=== PATIENT | female | born 1995 | race Caucasian/White ===

== ENCOUNTER 2016-12-06 20:56 | Emergency (ER) ==
[2016-12-06] MEDS ORDERED: NORCO 7.5-325 PO STA (21:21)
[2016-12-06 21:25] VITALS: BP 135/92; TEMP 98; BMI 28.5
--- NOTE | 2016-12-06 21:25 | ED.PDOC ---
General ED Provider: Dr. ZEYAD HUBER-ER Chief Complaint: Hand Pain/Injury Stated Complaint: i shut my hand in car door last night Time Seen by Physician: 21:23 Mode of Arrival: Walk-In Information Source: Patient Exam Limitations: No limitations Nursing and Triage Documentation Reviewed and Agree: Yes Musculoskeletal Complaint Exam - Hand/Wrist Complaint/Exam Location of Pain: Reports: Right, Digit #5 Mechanism of Injury: Reports: Trauma Onset/Duration: 24hrs Symptoms Are: Still present Onset of Pain: Reports: Immediate Initial Severity: Mild Current Severity: Moderate Location: Reports: Discrete (right hand ) Character: Reports: Dull, Aching Alleviating: Reports: Rest, Elevation Aggravating: Reports: Movement Associated Signs and Symptoms: Reports: Swelling, Bruising. Denies: Redness, Fever, Weakness, Numbness, Tingling Dominant Hand: Right Related Surgical History: Reports: None Hand/Wrist Findings: Present: Swelling, Ecchymosis Tenderness: Present: Metacarpal Compartment Syndrome Risk Factors: Present: Pain. Absent: Paralysis, Pallor, Pulselessness, Paresthesias Differential Diagnoses: Contusion, Closed Fracture Review of Systems - Review Of Systems Constitutional: Reports: No symptoms Eyes: Reports: No symptoms Ears, Nose, Mouth, Throat: Reports: No symptoms Respiratory: Reports: No symptoms Cardiac: Reports: No symptoms GI: Reports: No symptoms : Reports: No symptoms Musculoskeletal: Reports: Muscle pain Skin: Reports: No symptoms Neurological: Reports: No symptoms Endocrine: Reports: No symptoms Hematologic/Lymphatic: Reports: No symptoms All Other Systems: Reviewed and Negative Past Medical History - Past Medical History Endocrine: Reports: Unknown Cardiovascular: Reports: Unknown Respiratory: Reports: Unknown Hematological: Reports: Unknown Gastrointestinal: Reports: Unknown Genitourinary: Reports: Unknown Neuro/Psych: Reports: Unknown Musculoskeletal: Reports: Unknown Cancer: Reports: Unknown - Surgical History General Surgical History: Reports: Unknown - Family History Family History: Reports: Unknown - Social History Hx Substance Use: No Lives: With family Physical Exam - Physical Exam Appearance: Well-appearing Pain Distress: Mild Eyes: JEFF ENT: Ears normal, Nose normal, Oropharynx normal Neck: Supple Respiratory: Airway patent, Breath sounds clear, Breath sounds equal, Respirations nonlabored Cardiovascular: RRR, Pulses normal, No rub, No murmur GI/: Soft, Nontender, No masses, Bowel sounds normal, No Organomegaly Musculoskeletal: Limited ROM Skin: Warm, Dry, Normal color Neurological: Sensation intact, Motor intact, Reflexes intact, Cranial nerves intact, Alert, Oriented Psychiatric: Affect appropriate Interpretation - Radiology Interpretation Radiology Interpretation By: ED Physician Radiology Results: Positive Procedures - Splinting Location: right 5th metcarpal Hand-Made Type: Orthoglass Splint: Gutter splint Pre-Proc Neuro Vasc Exam: Normal Post-Proc Neuro Vasc Exam: Normal Re-Evaluation - Re-Evaluation Time of Re-Evaluation: 21:25 Status: Unchanged Vital Signs Stable: Yes Pain Level: 3 Appearance: NAD Lungs: Clear Skin: Warm and Dry Neuro: Alert and Oriented X3 CV: RRR Critical Care Note - Critical Care Note Total Time (mins): 0 Course - Course Orders, Labs, Meds: Orders Category Date Time Status Splint [ED SPLINT APPLICATION] .ONCE EMERGENCY 12/06/16 21:22 Active Hydrocodone Bit/Acetaminophen [Clio 7.5-325] MEDS 12/06/16 21:21 Discontinued 1 tab PO ONCE STA HAND, RIGHT 3 VIEWS Stat RADS 12/06/16 21:03 Taken Medications Discontinued Medications Generic Name Dose Route Start Last Admin Trade Name Freq PRN Reason Stop Dose Admin Acetaminophen/Hydrocodone Bitart 1 tab 12/06/16 21:21 Clio 7.5-325 PO 12/06/16 21:22 ONCE STA Departure - Departure Time of Disposition: 21:25 Disposition: HOME SELF-CARE Discharge Problem: Boxers fracture Qualifiers: Encounter type: initial encounter Fracture type: closed Qualifier Code: ( S62.309A) Unspecified fracture of unspecified metacarpal bone, initial encounter for closed fracture Instructions: Boxer Fracture (ED) Condition: Good Pt referred to PMD for follow-up: Yes Additional Instructions: stay in splint--keep hand elevated on pillows tonight--norco 7.5mg q 4hrs pnr pain #15--[facility]--diont forget copy of your xrays Disposition Discussed With: Patient, Family
--- NOTE | 2016-12-06 21:49 | DI ---
EXAM: Right hand three-view HISTORY: Pain, trauma COMPARISON: None FINDINGS: There is a mildly displaced fracture of the fifth metacarpal with mild volar angulation o f the distal fracture fragment. Remainder of the bones and joints are normal. No focal soft tissue a bnormality. IMPERSSION: Fracture of the fifth metacarpal. Report faxed at time of dictation.
== END 2016-12-06 22:01 | disposition home or self-care (01) ==
LOC: EDSEX → ED 20:56
DX: S62.636A Displaced fracture of distal phalanx of right little finger, initial encounter for closed fracture (principal); W23.1XXA Caught, crushed, jammed, or pinched between stationary objects, initial encounter
CPT/HCPCS: 99283

== ENCOUNTER 2017-04-13 23:27 | Emergency (ER) ==
[2017-04-13 23:41] VITALS: BP 123/78; TEMP 98.4; BMI 26.4
[2017-04-13] MEDS ORDERED: ZOFRAN 4 MG/2 ML IM STA (23:56)
[2017-04-13] MEDS ORDERED: TORADOL IM STA (23:56)
--- NOTE | 2017-04-13 23:59 | ED.PDOC ---
General ED Provider: Dr. AARON GARCIA Chief Complaint: Headache Stated Complaint: Been hurting in the head, she has chronic pain on and off, starts with left eye. mother has migrane. she is Time Seen by Physician: 23:57 Mode of Arrival: Walk-In Information Source: Patient Nursing and Triage Documentation Reviewed and Agree: Yes Neurological Complaint Exam - Headache Complaint/Exam Onset: Gradual Symptoms Are: Still present Timing: Constant Episodes Lasting: Hours Worst Headache Ever: No Initial Severity: Moderate Current Severity: Moderate Location: Right, Left, Frontal Character: Reports: Typical headache Aggravating: Reports: Bright lights Alleviating: Reports: None Associated Signs and Symptoms: Denies: Dizziness, Seizure, Nausea, Vomiting, Sinus pressure, Fever, Neck pain, Neck stiffness, Decreased LOC, Visual changes Related History: Reports: Similar episode Related Surgical History: Reports: None SAH Risk Factors: Reports: None Meningitis Risk Factors: Reports: None SDH Risk Factors: Reports: None Temporal Arteritis Risk Factors: Reports: None Normal Head CT Within Last 12 Months: No Sinus Tenderness: Present: None TMJ Tenderness: Present: None Meningeal Signs Positive: No ROM Limited In: No Limitiations Focal Weakness: Present: None Focal Sensory Loss: Present: None Gait: Normal Babinski Sign: Negative Right, Negative Left Heel to Toe Normal: Yes Differential Diagnoses: Migraine Review of Systems - Review Of Systems Constitutional: Reports: No symptoms Eyes: Reports: No symptoms Ears, Nose, Mouth, Throat: Reports: No symptoms Respiratory: Reports: No symptoms Cardiac: Reports: No symptoms GI: Reports: No symptoms : Reports: No symptoms Musculoskeletal: Reports: No symptoms Skin: Reports: No symptoms Neurological: Reports: Headache Endocrine: Reports: No symptoms Hematologic/Lymphatic: Reports: No symptoms All Other Systems: Reviewed and Negative Past Medical History - Past Medical History Previously Healthy: Yes Endocrine: Reports: Unknown Cardiovascular: Reports: Unknown Respiratory: Reports: Unknown Hematological: Reports: Unknown Gastrointestinal: Reports: Unknown Genitourinary: Reports: Unknown Neuro/Psych: Reports: Unknown Musculoskeletal: Reports: Unknown Cancer: Reports: Unknown Last Menstrual Period: 12/23/16 - Surgical History General Surgical History: Reports: Unknown - Family History Family History: Reports: Unknown - Social History Smoking Status: Current every day smoker, Light tobacco smoker Smoking Cessation Counseling Time: > 3 min - 10 min Hx Substance Use: No Alcohol Screening: None - Immunizations Tetanus Shot up to Date: Yes Physical Exam - Physical Exam Appearance: Ill-appearing Ill-appearing: Mild Eyes: JEFF, EOMI, Conjunctiva clear ENT: Ears normal, Nose normal, Oropharynx normal Respiratory: Airway patent, Breath sounds clear, Breath sounds equal, Respirations nonlabored Cardiovascular: RRR, Pulses normal, No rub, No murmur GI/: Soft, Nontender, No masses, Bowel sounds normal, No Organomegaly Musculoskeletal: Normal strength, ROM intact, No edema, No calf tenderness Skin: Warm, Dry, Normal color Neurological: Sensation intact, Motor intact, Reflexes intact, Cranial nerves intact, Alert, Oriented Psychiatric: Affect appropriate, Mood appropriate Critical Care Note - Critical Care Note Total Time (mins): 0 Course - Course Orders, Labs, Meds: Orders Category Date Time Status URINE Stat LAB 04/13/17 23:56 Uncollected Ketorolac Tromethamine [Toradol] MEDS 04/13/17 23:56 Discontinued 30 mg IM ONCE STA Ondansetron HCl/Pf [Zofran 4 mg/2 ml] MEDS 04/13/17 23:56 Discontinued 4 mg IM ONCE STA CT HEAD W/O CONTRAST Stat RADS 04/13/17 23:56 Ordered Medications Discontinued Medications Generic Name Dose Route Start Last Admin Trade Name Freq PRN Reason Stop Dose Admin Ketorolac Tromethamine 30 mg 04/13/17 23:56 Toradol IM 04/13/17 23:57 ONCE STA Ondansetron HCl 4 mg 04/13/17 23:56 Zofran 4 Mg/2 Ml IM 04/13/17 23:57 ONCE STA Vital Signs: Temp Pulse Resp BP Pulse Ox 04/13/17 23:29 98.4 F 85 20 123/78 98 Departure - Departure Time of Disposition: 00:12 Disposition: HOME SELF-CARE Discharge Problem: Headache Instructions: Migraine Headache (ED) Condition: Stable Pt referred to PMD for follow-up: Yes Additional Instructions: needs f/u with PMD f/u with OBGYN FOR LIST OF MEDICATIONS SHE CANE TAKE Allergies/Adverse Reactions: Allergies amoxicillin Adverse Reaction (Verified 12/06/16 21:25) Home Medications: Ambulatory Orders Pnv95/Ferrous Fumarate/FA [ Tablet] 1 each PO DAILY 04/13/17 Disposition Discussed With: Patient
== END 2017-04-14 00:32 | disposition home or self-care (01) ==
LOC: ED 23:27
DX: R51 Headache (principal); Z33.1 Pregnant state, incidental; F17.210 Nicotine dependence, cigarettes, uncomplicated
CPT/HCPCS: 99283